=== PATIENT | female | born 1955 | race Caucasian/White ===

== ENCOUNTER 2022-03-13 10:36 | Outpatient (CLI) | payer MEDICARE, SELFPAY ==
[2022-03-13 14:01] LABS: Hemoglobin A1C* 5.7 % (0-5.6)
[2022-03-13 21:33] LABS: Albumin* 4.5 g/dL (3.3-5.0)
[2022-03-13 21:34] LABS: Chloride* 107 mmol/L (96-114); Potassium* 5.2 mmol/L (3.6-5.1); Sodium* 141 mmol/L (135-149)
[2022-03-13 21:36] LABS: Carbon Dioxide* 25 mmol/L (20-32); Cholesterol* 169 mg/dL (90-199); Creatinine* 0.9 mg/dL (0.5-1.5); Estimated Glomerular Filt Rate 70 ml/min
[2022-03-13 21:37] LABS: Alanine Aminotransferase* 24 U/L (4-35); Alkaline Phosphatase* 98 U/L (40-150); Aspartate Amino Transferase* 29 U/L (12-35); Bilirubin Total* 0.6 mg/dL (0.1-1.5); Blood Urea Nitrogen* 30 mg/dL (7-30); Calcium* 9.9 mg/dL (8.4-10.6); Glucose* 128 mg/dL (60-115); HDL Cholesterol* 60 mg/dL (>=50); LDL Cholesterol Calculated 74 mg/dL (<100); Total Protein* 7.9 g/dL (6.0-8.3); Triglycerides* 177 mg/dL (40-149)
== END 2022-03-13 10:37 | disposition home or self-care (01) ==
PROVIDERS: PCP Emergency Medicine; Visit Provider Emergency Medicine
DX: Z00.00 Encounter for general adult medical examination without abnormal findings (principal); E78.5 Hyperlipidemia, unspecified; E11.9 Type 2 diabetes mellitus without complications; E03.9 Hypothyroidism, unspecified; I10 Essential (primary) hypertension
CPT/HCPCS: 80053; 80061; 83036; 84443

== ENCOUNTER 2022-12-18 15:50 | Outpatient (CLI) | payer MEDICARE, SELFPAY | END 2022-12-18 15:51 | disposition home or self-care (01) | PROVIDERS: PCP Emergency Medicine; Visit Provider Emergency Medicine | DX: Z00.00 Encounter for general adult medical examination without abnormal findings (principal); E03.9 Hypothyroidism, unspecified; E11.9 Type 2 diabetes mellitus without complications; I10 Essential (primary) hypertension; E78.5 Hyperlipidemia, unspecified | CPT/HCPCS: 80053; 80061; 82043; 82570; 84443 ==

== ENCOUNTER 2023-03-05 12:44 | Outpatient (CLI) | payer MEDICARE, SELFPAY ==
--- NOTE | 2023-03-05 13:00 | CRLHL7_ITS ---
For Patients: As a result of the Century Cures Act, medical imaging exams and procedure reports are released immediately into your electronic medical record. You may view this report before your referring provider. If you have questions, please contact your health care provider. DXA BONE MINERAL DENSITY STUDY Reason for exam: Low bone density. Current height (in): 63. Weight (lb): 285. Menopause age: 51. Ethnicity: White. 1. Have you had a previous hip or vertebral fracture? No. 2. Have you had any fractures during your adult life which did not result from significant trauma (e.g., auto accident)? No. 3. Did either of your parents have a hip fracture? No. 4. Do you smoke? No. 5. Have you ever taken Glucocorticoids? No. 6. Do you have rheumatoid arthritis? No. 7. Do you have secondary osteoporosis? No. 8. Do you drink 3 or more alcoholic drinks per day? No. 9. Are you being treated for osteoporosis? No. 10. Have you ever taken any of the following medications: Actonel, Evista, Fosamax, Miacalcin, Reclast, Boniva, Forteo, HRT (i.e., estrogen/hormone therapy), Protelos, Prolia, Vitamin D, Calcium, other ??? please specify. ANSWER: Yes, vitamin D and calcium. 11. Do you have any of the following medical conditions: Anorexia or bulimia, asthma or emphysema, end stage renal disease, hyperparathyroidism, any seizure disorders, cancer, inflammatory bowel diseases, hysterectomy, other ??? please specify. ANSWER: No. 12. What was your maximum height (inches)? 65. 13. Do you perform weight bearing exercise regularly? No. 14. Do you regularly consume dairy products? Yes. 15. Do you drink caffeinated beverages? Yes. If female: 16. At what age did your period start? 10. 17. Are you premenopausal? No. 18. How many full-term pregnancies have you had? 2. 19. Have you ever missed your period for more than 6 months in a row (not including or menopause)? No. TECHNIQUE: Bone mineral density study was performed using the [facility]. FINDINGS: The results of the study expressed as bone mineral density (BMD) are as follows: Lumbar spine L1 to L3: BMD: 1.331 g/cm2. T-score: 2.8. Z-score: 4.8 Neck Left: BMD: 0.707 g/cm2. T-score: -1.3. Z-score: 0.4 Right: BMD: 0.604 g/cm2. T-score: -2.2. Z-score: -0.5 Total Left: BMD: 0.848 g/cm2. T-score: -0.8. Z-score: 0.6 Right: BMD: 0.800 g/cm2. T-score: -1.2. Z-score: 0.2 IMPRESSION: Osteopenia. FRAX 10-year Fracture Risk Major Osteoporotic Fracture: 9.8% Hip Fracture: 1.6% Reported Risk Factors: [place] () Neck BMD=0.604, BMI= 48.8 Input outside FRAX limits. Adjusted to: Qehbhy=199 kg NITESH PAZ M.D. Diagnostic/Nuclear Medicine Radiologist [email or web address] JMN:alvin esquivel/Dictated by: Nitesh Paz MD @ 03/06/2023 11:52:00 AM (Electronically Signed)
--- NOTE | 2023-03-05 14:00 | CRLHL7_ITS ---
For Patients: As a result of the Century Cures Act, medical imaging exams and procedure reports are released immediately into your electronic medical record. You may view this report before your referring provider. If you have questions, please contact your health care provider. BILATERAL SCREENING MAMMOGRAM WITH COMPUTER-AIDED DETECTION AND TOMOSYNTHESIS TECHNIQUE: CC and MLO views were obtained. These mammographic images have been obtained using full-field digital technique. These mammographic images were interpreted with the benefit of computer-aided detection. Breast tomosynthesis was used in this interpretation. COMPARISON FILM: 03/09/19, 03/03/18, 03/02/17. FINDINGS: There are scattered areas of fibroglandular density. IMPRESSION: There is no radiographic evidence for malignancy. ASSESSMENT: BI-RADS Category 2: Benign RECOMMENDATION: Routine screening mammogram in 1 year. A lay language report of this examination will be provided to the patient. ALAN BUTLER M.D. Diagnostic Radiologist [email or web address]/[email or web address] Transcribed: 03/16/2023, 1:[address]/Dictated by: Alan Butler MD @ 03/16/2023 12:22:00 PM (Electronically Signed)
== END 2023-03-05 12:45 | disposition home or self-care (01) ==
LOC: RAD 12:46
PROVIDERS: PCP Emergency Medicine; Visit Provider Emergency Medicine
DX: Z12.31 Encounter for screening mammogram for malignant neoplasm of breast (principal); M85.9 Disorder of bone density and structure, unspecified; M85.89 Other specified disorders of bone density and structure, multiple sites
CPT/HCPCS: 77063; 77067; 77080

== ENCOUNTER 2023-07-23 11:36 | Outpatient (CLI) | payer MEDICARE, SELFPAY | END 2023-07-23 11:37 | disposition home or self-care (01) | LOC: LKVREF 11:37 | PROVIDERS: PCP Emergency Medicine; Visit Provider Emergency Medicine | DX: E11.9 Type 2 diabetes mellitus without complications (principal) | CPT/HCPCS: 80048 ==

== ENCOUNTER 2024-02-04 10:48 | Outpatient (CLI) | payer MEDICARE, SELFPAY | END 2024-02-04 10:49 | disposition home or self-care (01) | PROVIDERS: PCP Emergency Medicine; Visit Provider Emergency Medicine | DX: E78.5 Hyperlipidemia, unspecified (principal); E11.9 Type 2 diabetes mellitus without complications; I10 Essential (primary) hypertension; E03.9 Hypothyroidism, unspecified; E66.01 Morbid (severe) obesity due to excess calories; E06.3 Autoimmune thyroiditis | CPT/HCPCS: 80048; 80061; 82043; 82570; 84443 ==

== ENCOUNTER 2024-05-26 13:45 | Outpatient (CLI) | payer MEDICARE, SELFPAY | END 2024-05-26 13:46 | disposition home or self-care (01) | LOC: NFLDREF 05-28 14:03 | PROVIDERS: PCP Emergency Medicine; Referring Provider Emergency Medicine; Visit Provider Emergency Medicine | DX: Z00.00 Encounter for general adult medical examination without abnormal findings (principal); E11.9 Type 2 diabetes mellitus without complications; M85.9 Disorder of bone density and structure, unspecified; E03.8 Other specified hypothyroidism; E06.3 Autoimmune thyroiditis; I10 Essential (primary) hypertension; E78.2 Mixed hyperlipidemia | CPT/HCPCS: 82607 ==

== ENCOUNTER 2024-08-18 10:03 | Outpatient (CLI) | payer MEDICARE, SELFPAY ==
--- NOTE | 2024-08-18 10:15 | CRLHL7_ITS ---
For Patients: As a result of the Century Cures Act, medical imaging exams and procedure reports are released immediately into your electronic medical record. You may view this report before your referring provider. If you have questions, please contact your health care provider. BILATERAL SCREENING MAMMOGRAM WITH COMPUTER-AIDED DETECTION AND TOMOSYNTHESIS TECHNIQUE: CC and MLO views were obtained. These mammographic images have been obtained using full-field digital technique. These mammographic images were interpreted with the benefit of computer-aided detection. Breast tomosynthesis was used in this interpretation. COMPARISON FILM: 03/05/23, 03/09/19, 03/03/18. FINDINGS: There are scattered areas of fibroglandular density. IMPRESSION: There is no radiographic evidence for malignancy. ASSESSMENT: BI-RADS Category 2: Benign RECOMMENDATION: Routine screening mammogram in 1 year. A lay language report of this examination will be provided to the patient. ALAN BUTLER M.D. Diagnostic Radiologist [email or web address]/[place] Transcribed: 08/18/2024, 3:[address]/Dictated by: Alan Butler MD @ 08/18/2024 10:56:00 AM (Electronically Signed)
== END 2024-08-18 10:04 | disposition home or self-care (01) ==
PROVIDERS: PCP Emergency Medicine; Visit Provider Emergency Medicine
DX: Z12.31 Encounter for screening mammogram for malignant neoplasm of breast (principal)
CPT/HCPCS: 77063; 77067

== ENCOUNTER 2025-03-13 10:19 | Outpatient (CLI) | payer MEDICARE, SELFPAY | END 2025-03-13 10:20 | disposition home or self-care (01) | LOC: NFLDREF 03-14 15:53 | PROVIDERS: PCP Emergency Medicine; Referring Provider Emergency Medicine; Visit Provider Emergency Medicine | DX: E53.8 Deficiency of other specified B group vitamins (principal); M85.9 Disorder of bone density and structure, unspecified; E03.8 Other specified hypothyroidism; E06.3 Autoimmune thyroiditis; E11.9 Type 2 diabetes mellitus without complications; I10 Essential (primary) hypertension; E78.2 Mixed hyperlipidemia | CPT/HCPCS: 80048; 80061; 82043; 82570; 82607; 84443 ==

== ENCOUNTER 2025-04-13 08:53 | Outpatient (CLI) | payer MEDICARE, SELFPAY | END 2025-04-13 08:54 | disposition home or self-care (01) | LOC: NFLDREF 04-16 05:09 | PROVIDERS: PCP Emergency Medicine; Referring Provider Emergency Medicine; Visit Provider Emergency Medicine | DX: E83.52 Hypercalcemia (principal) | CPT/HCPCS: 80048; 82306 ==